=== PATIENT | female | born 1965 | race Caucasian/White ===

== ENCOUNTER 2022-11-24 13:36 | Emergency (ER) | payer OTHER ==
[~2022-11-24] VITALS: Ht 160 cm; Wt 63.5 kg
[2022-11-24] MEDS ORDERED: TENORMIN25 MG PO (14:16)
== END 2022-11-24 17:20 | disposition home or self-care (01) ==
LOC: ER 13:36
DX: K08.89 Other specified disorders of teeth and supporting structures (principal)